=== PATIENT | male | born 1950 | race American Indian/Alaskan Native ===

== ENCOUNTER 2018-03-25 18:27 | Emergency (ER) | payer MEDICARE ==
--- NOTE | 2018-03-25 21:18 | Emergency Department Report ---
- General Chief Complaint: Dyspnea/Respdistress Stated Complaint: SOB/COUGH Time Seen by Provider: 03/25/18 21:03 Source: patient Mode of arrival: Ambulatory Limitations: No Limitations - History of Present Illness Initial Comments: Mr. Moise is a very pleasant 67-year-old gentleman with history of CHF hypertension diabetes dyslipidemia. He presents with 2-3 days of productive cough yellow sputum. Mild shortness of breath. Feels like his previous episode of pneumonia. Denies any fever. Denies chest pain. Denies generalized malaise. He is followed at [facility]. Former tobacco user. is bedside. MD Complaint: cough -: week(s) (1) Severity: moderate Consistency: constant Improves With: nothing Worsens With: nothing Associated Symptoms: denies other symptoms - Related Data Previous Rx's Medication Instructions Recorded Last Taken Type Doxycycline Hyclate [Doxycycline 100 mg PO Q12HR 7 Days #14 tab 03/25/18 Unknown Rx Hyclate TAB] Hydrocodone/Chlorphen P-Stirex 5 ml PO BID PRN #100 ml 03/25/18 Unknown Rx [Tussionex Pennkinetic Susp] Allergies Allergy/AdvReac Type Severity Reaction Status Date / Time No Known Allergies Allergy Verified 03/25/18 18:28 ED Review of Systems ROS: Stated complaint: SOB/COUGH Other details as noted in HPI Comment: All other systems reviewed and negative Constitutional: denies: fever, malaise Respiratory: cough Cardiovascular: denies: chest pain ED Past Medical Hx - Past Medical History Hx Hypertension: Yes Hx Congestive Heart Failure: Yes Hx Diabetes: Yes Additional medical history: high cholesterol - Surgical History Additional Surgical History: abdominal sx - Social History Substance Use Type: Alcohol - Medications Home Medications: Home Medications Medication Instructions Recorded Confirmed Last Taken Type Doxycycline Hyclate [Doxycycline 100 mg PO Q12HR 7 Days #14 tab 03/25/18 Unknown Rx Hyclate TAB] Hydrocodone/Chlorphen P-Stirex 5 ml PO BID PRN #100 ml 03/25/18 Unknown Rx [Tussionex Pennkinetic Susp] ED Physical Exam - General Limitations: No Limitations General appearance: alert, in no apparent distress, other (infrequent cough) - Head Head exam: Present: atraumatic, normocephalic - Eye Eye exam: Present: normal appearance - ENT ENT exam: Present: mucous membranes moist - Neck Neck exam: Present: normal inspection. Absent: tenderness, meningismus - Respiratory Respiratory exam: Present: normal lung sounds bilaterally. Absent: respiratory distress, wheezes, rales, rhonchi, stridor - Cardiovascular Cardiovascular Exam: Present: regular rate, normal rhythm, normal heart sounds. Absent: bradycardia, tachycardia, systolic murmur, diastolic murmur, rubs, gallop - GI/Abdominal GI/Abdominal exam: Present: soft, normal bowel sounds. Absent: distended, tenderness, guarding, rebound - Rectal Rectal exam: Present: deferred - Extremities Exam Extremities exam: Present: normal inspection - Back Exam Back exam: Present: normal inspection - Neurological Exam Neurological exam: Present: alert, oriented X3 - Psychiatric Psychiatric exam: Present: normal affect, normal mood - Skin Skin exam: Present: warm, dry, intact, normal color. Absent: rash ED Course Vital Signs 03/25/18 03/25/18 03/25/18 18:29 21:08 23:00 Temperature 97.8 F 98.4 F Pulse Rate 91 H 79 76 Respiratory 18 16 20 Rate Blood Pressure 181/96 135/70 Blood Pressure 159/84 [Left] O2 Sat by Pulse 98 99 93 Oximetry ED Medical Decision Making - EKG Data 03/25/18 21:19 EKG obtaine 1827 Normal sinus rhythm rate 85 beats a minute left axis deviation no ST elevation biphasic T waves in the lateral leads +LVH - Radiology Data Radiology results: report reviewed NAP - Medical Decision Making Mr. Colvin presents with productive cough. No infiltrate on radiographs. As a previous tobacco user, I feel that antibiotics are warranted. EKG was obtained per triage protocol. rx: doxycycline, tussionex Critical care attestation.: If time is entered above; I have spent that time in minutes in the direct care of this critically ill patient, excluding procedure time. ED Disposition Clinical Impression: Acute bronchitis Disposition: DC-01 TO HOME OR SELFCARE Is pt being admited?: No Does the pt Need Aspirin: No Condition: Stable Instructions: Acute Bronchitis (ED) Prescriptions: Doxycycline Hyclate [Doxycycline Hyclate TAB] 100 mg PO Q12HR 7 Days #14 tab Hydrocodone/Chlorphen P-Stirex [Tussionex Pennkinetic Susp] 5 ml PO BID PRN # 100 ml PRN Reason: Cough Referrals: PRIMARY CARE, [Primary Care Provider] - 3-5 Days
--- NOTE | 2018-03-25 21:45 | XRay Report ---
FINAL REPORT EXAM: XR CHEST 1V AP HISTORY: dyspnea TECHNIQUE: upright single view chest PRIORS: None. FINDINGS: Cardiac and mediastinal contours are unremarkable. No focal pulmonary infiltrate is identified. No pleural fluid collection seen. Pulmonary vasculature is unremarkable. IMPRESSION: Negative single-view chest
[2018-03-25 23:12] VITALS: BP 135/70
== END 2018-03-26 00:06 | disposition home or self-care (01) ==
LOC: ED 18:27
DX: J20.9 Acute bronchitis, unspecified (principal); I11.0 Hypertensive heart disease with heart failure; I50.9 Heart failure, unspecified; E11.9 Type 2 diabetes mellitus without complications; E78.00 Pure hypercholesterolemia, unspecified
CPT/HCPCS: 71045; 93005; 93010; 99283

== ENCOUNTER 2018-08-15 16:08 | Emergency (ER) | payer MEDICARE ==
--- NOTE | 2018-08-15 17:52 | Emergency Department Report ---
Chief Complaint: Fall Stated Complaint: CHEST PAIN FROM A FALL Time Seen by Provider: 08/15/18 17:50 - HPI History of Present Illness: pmh dm htn hpld pcp ? rx insulin metformin lisinopril statin psh abd 40 y ago no etoh no cig glf yesterday severe l sided chest pain mse completed - Exam Vital Signs: Vital Signs 08/15/18 16:18 Temperature 98.5 F Pulse Rate 81 Respiratory 16 Rate Blood Pressure 162/94 O2 Sat by Pulse 100 Oximetry MSE screening note: Focused history and physical exam performed. Due to findings the following was ordered: ED Disposition for MSE Condition: Stable
[2018-08-15 19:12] LABS: Hematocrit 31.8 % (35.5-45.6); Hemoglobin 11.1 gm/dl (11.8-15.2); Mean Corpuscular HGB Conc 35 % (32-34); Mean Corpuscular Volume 103 fl (84-94); Platelet Count 184 K/mm3 (140-440); Red Blood Count 3.08 M/mm3 (3.65-5.03); Red Cell Distribution Width 14.6 % (13.2-15.2)
--- NOTE | 2018-08-15 19:17 | XRay Report ---
PROCEDURE: XR RIBS UNI W PA CHEST 3+V LT TECHNIQUE: PA chest x-ray, AP view of the ribs and oblique view of the left ribs HISTORY: fall . Pain. COMPARISONS: Prior chest x-ray 03/25/2018 FINDINGS: The heart is mildly enlarged. The upper lobe vasculature is more distended than on the previous exam. Interstitial markings are mildly coarsened. I cannot exclude mild CHF. No effusions are seen. No foc al infiltrates or masses or pneumothorax are visualized. No acute bone abnormalities are visualized. IMPRESSION: Cardiomegaly and prominence of pulmonary vasculature as described. I cannot exclude mild CHF. No effu sions are identified. No displaced rib fractures are seen.. This document is electronically signed by Roland Herzog MD., August 15 2018 07:14:59 PM ET
[2018-08-15 19:19] LABS: BUN/Creatinine Ratio 14; Blood Urea Nitrogen 15 mg/dL (9-20); Calcium 8.5 mg/dL (8.4-10.2); Hemolysis Index 4
--- NOTE | 2018-08-15 21:54 | Emergency Department Report ---
ED Fall HPI - General Chief Complaint: Fall Stated Complaint: CHEST PAIN FROM A FALL Time Seen by Provider: 08/15/18 17:50 Source: patient Mode of arrival: Ambulatory - History of Present Illness Initial Comments: Pt is a 67 yo male with a hx of CHF, DM, HTN who presents to the ED with c/o a fall that occurred yesterday. He states he was walking into the drug store and was stepping up onto the sidewalk when he slipped and fell. He states he caught himself with both hands and felt a soreness in his left chest when he fell. The patient presents for left chest wall pain. The patient states the pain is worse with movements and when he twists. He denies hitting his head or LOC. He denies any CP, dizziness, or syncope prior to the fall. He states he has "muscular pain" in the left chest. The patient denies any SOB, N/V, or any other injury. he denies any pain in his hands. The patient states he forgot to take his lasix this morning for his CHF. He has not tried any medication for the pain. - Related Data Previous Rx's Medication Instructions Recorded Last Taken Type Doxycycline Hyclate [Doxycycline 100 mg PO Q12HR 7 Days #14 tab 03/25/18 Unknown Rx Hyclate TAB] Hydrocodone/Chlorphen P-Stirex 5 ml PO BID PRN #100 ml 03/25/18 Unknown Rx [Tussionex Pennkinetic Susp] Cyclobenzaprine [Flexeril] 10 mg PO QHS PRN #10 tablet 08/15/18 Unknown Rx Naproxen 250 mg PO Q8HR #20 tablet 08/15/18 Unknown Rx Allergies Allergy/AdvReac Type Severity Reaction Status Date / Time No Known Allergies Allergy Verified 03/25/18 18:28 ED Review of Systems ROS: Stated complaint: CHEST PAIN FROM A FALL Other details as noted in HPI Comment: All other systems reviewed and negative ED Past Medical Hx - Past Medical History Previous Medical History?: Yes Hx Hypertension: Yes Hx Congestive Heart Failure: Yes Hx Diabetes: Yes Additional medical history: high cholesterol - Surgical History Past Surgical History?: Yes Additional Surgical History: abdominal sx - Social History Smoking Status: Former Smoker Substance Use Type: None - Medications Home Medications: Home Medications Medication Instructions Recorded Confirmed Last Taken Type Doxycycline Hyclate [Doxycycline 100 mg PO Q12HR 7 Days #14 tab 03/25/18 Unknown Rx Hyclate TAB] Hydrocodone/Chlorphen P-Stirex 5 ml PO BID PRN #100 ml 03/25/18 Unknown Rx [Tussionex Pennkinetic Susp] Cyclobenzaprine [Flexeril] 10 mg PO QHS PRN #10 tablet 08/15/18 Unknown Rx Naproxen 250 mg PO Q8HR #20 tablet 08/15/18 Unknown Rx ED Physical Exam - General Limitations: No Limitations General appearance: alert, in no apparent distress - Head Head exam: Present: atraumatic, normocephalic - Eye Eye exam: Present: normal appearance - ENT ENT exam: Present: mucous membranes moist - Neck Neck exam: Present: normal inspection, full ROM. Absent: tenderness - Respiratory Respiratory exam: Present: normal lung sounds bilaterally, chest wall tenderness (left anterior chest wall tenderness to palpation, increased with movements ). Absent: respiratory distress, wheezes, rales, rhonchi, stridor, accessory muscle use, decreased breath sounds, prolonged expiratory - Cardiovascular Cardiovascular Exam: Present: regular rate, normal rhythm, normal heart sounds. Absent: systolic murmur, rubs, gallop - GI/Abdominal GI/Abdominal exam: Present: soft. Absent: distended, tenderness - Extremities Exam Extremities exam: Present: normal inspection, full ROM, normal capillary refill, other (no abrasions to the bilateral hands). Absent: tenderness, pedal edema, joint swelling - Neurological Exam Neurological exam: Present: alert, oriented X3, normal gait. Absent: motor sensory deficit - Psychiatric Psychiatric exam: Present: normal affect, normal mood - Skin Skin exam: Present: warm, dry, intact ED Course Vital Signs 08/15/18 08/15/18 08/15/18 16:18 22:44 22:55 Temperature 98.5 F 98.5 F Pulse Rate 81 81 Respiratory 16 16 Rate Blood Pressure 162/94 168/100 O2 Sat by Pulse 100 100 Oximetry ED Medical Decision Making - Lab Data Result diagrams: 08/15/18 18:51 08/15/18 18:51 Laboratory Results - last 24 hr 08/15/18 08/15/18 08/15/18 18:51 18:51 18:51 WBC 4.3 L RBC 3.08 L Hgb 11.1 L Hct 31.8 L MCV 103 H MCH 36 H MCHC 35 H RDW 14.6 Plt Count 184 Sodium 131 L Potassium 3.6 Chloride 101.8 Carbon Dioxide 23 Anion Gap 10 BUN 15 Creatinine 1.1 Estimated GFR > 60 BUN/Creatinine Ratio 14 Glucose 97 Calcium 8.5 Troponin T < 0.010 08/15/18 21:33 WBC RBC Hgb Hct MCV MCH MCHC RDW Plt Count Sodium Potassium Chloride Carbon Dioxide Anion Gap BUN Creatinine Estimated GFR BUN/Creatinine Ratio Glucose Calcium Troponin T < 0.010 - EKG Data EKG shows normal: sinus rhythm, axis, intervals Rate: normal - EKG Data When compared to previous EKG there are: no significant change Interpretation: no acute changes, LVH 08/16/18 03:05 LVH, previous anterior q waves - Radiology Data Radiology results: report reviewed, image reviewed CXR with rib series: no acute process - Medical Decision Making Pt presents with left sided CP that began after a ground level fall yesterday. He slipped in fell getting onto the sidewalk on the curb. He caught himself by his bilateral hands and has been feeling discomfort in his left chest. He says the pain is worse with movement. Denies any hand pain or abrasions. Has anterior left sided chest wall TTP. CXR with rib series normal, trop negative x2, EKG looks the same as prior. Will give pt anti inflammatory and muscle relaxer only to take at night and not while driving. Advised to follow up with his PCP. Incidentally on his bloodwork he has mild anemia advised pt to discuss this with his PCP for further management. Pt agrees and expressed understanding. - Differential Diagnosis muscle strain, rib fx, costochrondritis Critical care attestation.: If time is entered above; I have spent that time in minutes in the direct care of this critically ill patient, excluding procedure time. ED Disposition Clinical Impression: Chest wall pain Anemia Qualifiers: Anemia type: unspecified type Qualified Code(s): D64.9 - Anemia, unspecified Disposition: -01 TO HOME OR SELFCARE Is pt being admited?: No Does the pt Need Aspirin: No Condition: Stable Instructions: Costochondritis (ED) Additional Instructions: Follow up with your primary care doctor in the next 2-3 days. You are anemic on your blood work will need further testing by your primary doctor. No driving while taking muscle relaxer. Prescriptions: Cyclobenzaprine [Flexeril] 10 mg PO QHS PRN #10 tablet PRN Reason: Muscle Spasm Naproxen 250 mg PO Q8HR #20 tablet Referrals: JOSE J SERRA MD [Primary Care Provider] - 3-5 Days Time of Disposition: 22:32 Print Language: TELUGU
[2018-08-15 22:54] VITALS: BP 168/100
== END 2018-08-15 22:56 | disposition home or self-care (01) ==
LOC: ED 16:08
DX: R07.89 Other chest pain (principal); D64.9 Anemia, unspecified; I11.0 Hypertensive heart disease with heart failure; I50.9 Heart failure, unspecified; E11.9 Type 2 diabetes mellitus without complications; E78.00 Pure hypercholesterolemia, unspecified; Z87.891 Personal history of nicotine dependence
CPT/HCPCS: 36415; 80048; 84484; 85027; 93005; 93010